=== PATIENT | male | born 1950 | race Caucasian/White ===

== ENCOUNTER 2017-10-12 18:25 | Emergency (ER) | payer BC ==
[2017-10-12 19:20] VITALS: BP 151/68
[2017-10-12] MEDS ORDERED: DOXYcycline CAP(*) 100 MG PO ONE (20:38)
--- NOTE | 2017-10-12 21:05 | UC ---
General HPI - HPI Summary HPI Summary: TICK ON LEFT ARM, UNSURE FOR HOW LONG. ATTEMPTED TO REMOVE TICK THIS MORNING. TICK FRAGMENTS ARE STILL EMBEDDED IN BITE WOUND. NO FEVER NO JOINT PAIN. - History of Current Complaint Chief Complaint: [place] Stated Complaint: TICK Time Seen by Provider: 10/12/17 20:32 Hx Obtained From: Patient Onset/Duration: Sudden Onset, Lasting Days Onset Severity: Mild Current Severity: Mild Pain Intensity: 0 Associated Signs & Symptoms: Positive: Other - TICK BITE, FRAGMENT STILL EMBEDDED IN LEFT ARM - Allergy/Home Medications Allergies/Adverse Reactions: Allergies Allergy/AdvReac Type Severity Reaction Status Date / Time No Known Allergies Allergy Verified 10/12/17 19:20 Home Medications: Home Medications Mesalamine (NF) [Apriso (NF)] 0.375 gm PO DAILY 10/12/17 [History Confirmed 06/21] Valsartan TAB* [Diovan TAB*] 160 mg PO DAILY 10/12/17 [History Confirmed ] PMH/Surg Hx/FS Hx/Imm Hx Previously Healthy: Yes - Surgical History Surgical History: Yes Surgery Procedure, Year, and Place: back surgery x2. R arm plate - Family History Known Family History: Negative: Blood Disorder - Social History Lives: With Family Alcohol Use: None Substance Use Type: None Smoking Status (MU): Never Smoked Tobacco Review of Systems Constitutional: Negative Skin: Other - TICK BITE, FRAGMENT STILL EMBEDDED IN LEFT ARM Eyes: Negative ENT: Negative Respiratory: Negative Cardiovascular: Negative Gastrointestinal: Negative Genitourinary: Negative Motor: Negative Neurovascular: Negative Musculoskeletal: Negative Neurological: Negative Psychological: Negative Is Patient Immunocompromised?: No All Other Systems Reviewed And Are Negative: Yes Physical Exam Triage Information Reviewed: Yes Appearance: Well-Appearing, No Pain Distress, Well-Nourished Vital Signs: Initial Vital Signs Temp 97.4 F 10/12/17 19:16 Pulse 59 10/12/17 19:16 Resp 16 10/12/17 19:16 BP 151/68 10/12/17 19:16 Pulse Ox 100 10/12/17 19:16 Vital Signs Reviewed: Yes Eye Exam: Normal ENT Exam: Normal Dental Exam: Normal Neck exam: Normal Neck: Positive: Supple, Nontender, No Lymphadenopathy Respiratory Exam: Normal Respiratory: Positive: Chest non-tender, Lungs clear, Normal breath sounds, No respiratory distress, No accessory muscle use Cardiovascular Exam: Normal Cardiovascular: Positive: RRR, No Murmur, Pulses Normal Abdominal Exam: Normal Musculoskeletal Exam: Normal Musculoskeletal: Positive: Strength Intact, ROM Intact Neurological Exam: Normal Psychological Exam: Normal Skin: Positive: Other - TICK BITE, FRAGMENT STILL EMBEDDED IN LEFT ARM Procedures - Procedure Summary Procedure Summary: TICK FRAGMENTS REMOVED USING SPLINTER FORCEPS. PATIENT TOLERATED PROCEDURE WELL. AREA CLEANED PRIOR AND POST FRAGMENT REMOVAL WITH ALCOHOL SWABS Course/Dx - Differential Dx - Multi-Symptom Differential Diagnoses: Metabolic Abnormality, Other - TICK BITE Provider Diagnoses: TICK BITE, WITH FRAGMENT REMOVAL; TICK BITE PROPHYLAXIS Discharge - Discharge Plan Condition: Stable Disposition: HOME Patient Education Materials: Tick Bite (ED) Referrals: Tucker Jurado MD [Primary Care Provider] - Images Front/Back of Body, Lg ([facility]): 1 - TICK BITE, FRAGMENT STILL EMBEDDED IN LEFT ARM
== END 2017-10-12 20:45 | disposition home or self-care (01) ==
LOC: UCCORT 18:25
DX: S40.862A Insect bite (nonvenomous) of left upper arm, initial encounter (principal); W57.XXXA Bitten or stung by nonvenomous insect and other nonvenomous arthropods, initial encounter; Y93.9 Activity, unspecified; Y92.9 Unspecified place or not applicable
CPT/HCPCS: 99202; A9270-GY; G0463

== ENCOUNTER 2018-04-29 09:30 | Day surgery (SDC) | payer BC ==
--- NOTE | 2018-04-24 21:43 | HP ---
CC: Dr. Jurado * PREOPERATIVE HISTORY AND PHYSICAL: DATE OF ADMISSION/SURGERY: 04/29/18 This patient is scheduled for same-day surgery admission by Dr. Louis, on 04/29/18. DATE OF PREOPERATIVE HISTORY AND PHYSICAL EXAMINATION: 04/24/18. ATTENDING SURGEON: Dr. Israel Louis * (dictated by Sandi Morocho NP). CHIEF COMPLAINT: Right inguinal hernia. HISTORY OF PRESENT ILLNESS: The patient is a 67-year-old male referred by Dr. Jurado to Dr. Louis for evaluation of a right inguinal hernia. He states that over the last couple of weeks, he has noticed discomfort and a bulge in the right groin. He denies any nausea or vomiting or dysuria. There has been no pain or swelling in the scrotum or testicle. He has no generalized abdominal discomfort. He does cut the grass regularly, but does not usually do a significant amount of heavy lifting. There has been no pain or bulge in the left groin. He denies any signs or symptoms to suggest incarceration or strangulation. Dr. Louis examined the patient and noted an obvious bulge in the right groin that is reducible and nontender consistent with right inguinal hernia. Dr. Louis discussed the findings with the patient and has recommended open right inguinal hernia repair with mesh as a same-day surgery procedure. Dr. Louis discussed the nature of the surgical procedure, the relevant risks and benefits and today, I reviewed the expected postoperative care and recovery. The patient has had a chance to ask questions and stated that he understands the information and is satisfied with the answers given to his questions. PAST MEDICAL HISTORY: Significant for hypertension, ulcerative colitis, and early Alzheimer's disease. He is followed for primary care by Dr. Jurado. PAST SURGICAL HISTORY: Back surgery in 2001 and 2006. MEDICATIONS: 1. Apriso 0.375 g. 2. Diovan 160 mg. 3. Donepezil 10 mg. 4. Mirtazapine 15 mg. 5. Mometasone 0.1% apply daily as directed. ALLERGIES: No known drug allergies. FAMILY HISTORY: No known anesthesia complications, bleeding tendencies or clotting disorders. SOCIAL HISTORY: He is and is retired. He is a former smoker. He denies use of alcohol or other substances. REVIEW OF SYSTEMS: Constitutional: No fevers, chills, excessive fatigue, or weight loss. Endocrine: No diabetes or thyroid disease. Hematologic: No easy bruising or bleeding. He has never received a blood transfusion. Respiratory: No dyspnea on exertion. No chronic cough. Cardiovascular: No anginal chest pain or palpitations. Gastrointestinal: No nausea or vomiting. No constipation or GI bleeding; he has a history of colitis and his stools are typically loose or soft. Genitourinary: No dysuria. Musculoskeletal: No chronic back or joint pain. Integumentary: No chronic rashes or skin changes. Neurologic: Diagnosed with early Alzheimer's. No blurred vision or areas of focal weakness. Gait is slow and shuffling, but steady. General: No previous anesthesia complications. No history of deep vein thrombosis or pulmonary embolism. PHYSICAL EXAM: GENERAL SURVEY: The patient is a 67-year-old male, well- developed, well-nourished, in no acute distress. VITAL SIGNS: Height 70 inches, weight 160 pounds, body mass index 23. Blood pressure 134/70, pulse 62 and regular, respiratory rate 16, temperature 97.9. HEENT: Benign. NECK: Supple. No cervical lymphadenopathy. LUNGS: Breath sounds bilaterally clear and equal. HEART: Regular rate and rhythm. No murmurs or rubs appreciated. ABDOMEN: Active bowel sounds, soft, nondistended, nontender throughout. Inguinal exam is done by Dr. Louis. Upon standing, there is an obvious bulge in the right groin consistent with a reducible nontender right inguinal hernia, no testicular masses on either side. No scrotal swelling. No left inguinal or femoral hernia. EXTREMITIES: Warm without edema or skin ulcerations. GENITALIA: Normal male. No testicular mass is noted. No scrotal enlargement bilaterally. RECTAL EXAM: Deferred. NEUROLOGIC: Alert and oriented x3, shuffling, slow gait, but steady. SKIN: Warm, dry, intact. IMPRESSION: Right inguinal hernia. PLAN: Same-day surgery admission to Dr. Louis's service on 04/29/18 , for open right inguinal hernia repair with mesh. SANDI MOROCHO, DIESEL SERVICE APPRENTICE [id number]/CPS #: [id number] MARLEE
[~2018-04-29 09:30] MED LIST: Buffered Lidocaine 0.9% SYRIN* 5 ML/SYR SYRINGE INTRADERM ONE; Dexamethasone TAB* 4 MG PO ONE; DiMENhydriNATE IV* 50 MG/ML VIAL IV PUSH PRN; Famotidine IV* 10 MG/ML 2 ML (20 mg) IV ONE; Morphine INJ* 2 MG/ML 1 ML CARPUJECT IV PRN; Naloxone* 0.4 MG/ML 1 ML VIAL IV PRN; Ondansetron INJ* 2 MG/ML VIAL ONE; PROCHLORPERAZINE INJ 5 MG/ML 2 ML VIAL IV PRN; fentaNYL* 50 MCG/ML 2 ML VIAL (100 MCG VIAL) IV PRN; oxyCODONE/Acetamin 5/325 MG* TAB PO PRN
[2018-04-29] MEDS ORDERED: ceFAZolin 2 GM PREMIX (*) 2 GM/50 ML BAG IVPB ONE (09:43)
[2018-04-29] MEDS ORDERED: Famotidine IV* 10 MG/ML 2 ML (20 mg) ONE (09:43)
[2018-04-29] MEDS ORDERED: Buffered Lidocaine 0.9% SYRIN* 5 ML/SYR SYRINGE ONE (09:43)
[2018-04-29] MEDS ORDERED: Dexamethasone TAB* 4 MG ONE (09:43)
[2018-04-29] MEDS ORDERED: Midazolam* 1 MG/ML 5 ML VIAL (5 MG) ONE (09:56)
[2018-04-29] MEDS ORDERED: KETAMINE HCL* 50 MG/ML 10 ML VIAL ONE (09:56)
[2018-04-29] MEDS ORDERED: fentaNYL* 50 MCG/ML 2 ML VIAL (100 MCG VIAL) ONE (09:56)
[2018-04-29] MEDS ORDERED: Ondansetron ODT TAB* 4 MG ONE (10:11)
[2018-04-29] MEDS ORDERED: Bupivacaine 0.5% SDV PF* 30ML VIAL ONE (10:27)
[2018-04-29] MEDS ORDERED: Lidocaine 2% W/EPI 1:100,000* 20 ML MDV ONE (10:27)
[2018-04-29] MEDS ORDERED: Ketorolac INJ* 30 MG/ML 1 ML VIAL ONE (10:54)
[2018-04-29] MEDS ORDERED: Propofol* 500 MG/50 ML BTL ONE (10:54)
[2018-04-29] MEDS ORDERED: Lidocaine 2% PF * 5 ML VIAL ONE (10:54)
[2018-04-29] MEDS ORDERED: hydrALAZINE IV* 20 MG/ML VIAL ONE (13:12)
[2018-04-29 13:33] VITALS: BP 187/84
--- NOTE | 2018-04-30 06:46 | OP ---
CC: Dr. Jurado, [facility] * DATE OF OPERATION: 04/29/18 - SDS DATE OF : 50 SURGEON: Israel Louis MD CFA: Shy Morocho NP ANESTHESIOLOGIST: Dr. Montelongo. ANESTHESIA: Local with monitored anesthesia care. PRE-OP DIAGNOSIS: Right inguinal hernia. POST-OP DIAGNOSIS: Right indirect inguinal hernia. OPERATIVE PROCEDURE: Open repair with mesh of right inguinal hernia. ESTIMATED BLOOD LOSS: Minimal. WOUND CLASSIFICATION: I. DRAINS: None. SPECIMENS: None. COMPLICATIONS: None. DESCRIPTION OF PROCEDURE: Written informed consent was obtained, the right groin was marked with indelible ink and preoperative antibiotics were administered. The patient was taken to the operating room and placed in the supine position. Sequential compression devices and a warming blanket were applied. The right groin and lower abdomen were prepped and draped in the usual sterile fashion. Time-out verification was completed. Initially, a 0.25% Marcaine mixed with 1% lidocaine with epinephrine was infiltrated in the right groin and an oblique incision several fingerbreadths above the inguinal crease was made, carried down through Hernán's fascia. The external oblique aponeurosis and the external ring were identified and open in the direction of its fibers. The spermatic cord was encircled with a 1/4-inch Ione drain at the pubic tubercle. Careful evaluation of the inguinal region showed the direct space and inguinal floor to be intact without evidence of direct hernia. Cord structures were then carefully evaluated and we proceeded to dissect a rather large and redundant indirect inguinal hernia sac from the cord structures and this out up into the internal ring. I did make a rent into the peritoneum and this was closed with a running 3-0 Vicryl suture. The vas deferens and spermatic cord and its contents were carefully protected throughout. I did sacrifice the iliohypogastric and ilioinguinal nerves as they were quite adherent to the scar tissue and the sac and I felt that these had been damaged during our dissection. There was no other cord abnormalities noted. The internal ring appeared to be just about as expected in size. Once this was complete, the pre-cut ProGrip Covidien mesh was then placed and sutured to pubic tubercle with 0 Vicryl suture. It was placed to cover the conjoint tendon superiorly, the musculature laterally, and the inguinal ligament inferiorly with its gripping surface. The internal ring was reconstructed nicely after the mesh was placed. Hemostasis was then assured. Additional marking was infiltrated for postoperative pain management. The external oblique aponeurosis was closed with a running 3-0 Vicryl suture. The Hernán's fascia was closed with a running 3-0 Vicryl suture. The skin was approximated with subcuticular 4-0 Monocryl suture. Steri-Strips and sterile dressings were applied. The patient tolerated the procedure well and was taken to the recovery room in stable condition. [id number]/CPS #: [id number]
== END 2018-04-29 13:50 | disposition home or self-care (01) ==
LOC: OR 09:30
PROVIDERS: ATTEND Surgery
DX: K40.90 Unilateral inguinal hernia, without obstruction or gangrene, not specified as recurrent (principal); Z87.891 Personal history of nicotine dependence; I10 Essential (primary) hypertension; K51.90 Ulcerative colitis, unspecified, without complications; G30.0 Alzheimer's disease with early onset; F02.80 Dementia in other diseases classified elsewhere, unspecified severity, without behavioral disturbance, psychotic disturbance, mood disturbance, and anxiety
CPT/HCPCS: A9270-GY; C1781; J0360; J0690; J1885; J2250; J2704; J3010; J8540